=== PATIENT | female | born 1975 | race Caucasian/White ===

== ENCOUNTER 2019-11-23 08:09 | Outpatient (CLI) | payer OTHER, SELFPAY ==
[2019-11-23 09:08] LABS: Alanine Aminotransferase 25 U/L (4-35); Albumin Level 4.3 g/dL (3.5-5.1); Alkaline Phosphatase 135 U/L (38-126); Aspartate Amino Transferase 20 U/L (14-36); Bilirubin,Total 0.5 mg/dL (0.2-1.3); Cholesterol 189 mg/dL (0-200); HDL Direct 54 mg/dL; Triglycerides 164 mg/dL (<150)
[2019-11-23 09:19] LABS: LDL Cholesterol Direct 107 mg/dL
== END 2019-11-23 08:10 | disposition home or self-care (01) ==
PROVIDERS: PCP Family Medicine; Visit Provider Physician Assistant
DX: E78.5 Hyperlipidemia, unspecified (principal); R74.8 Abnormal levels of other serum enzymes; E03.9 Hypothyroidism, unspecified
CPT/HCPCS: 36415; 80061; 80076; 84443

== ENCOUNTER 2020-06-06 07:40 | Outpatient (CLI) | payer OTHER, SELFPAY ==
[2020-06-06 07:59] LABS: Alanine Aminotransferase 26 U/L (4-35); Albumin Level 4.5 g/dL (3.5-5.1); Alkaline Phosphatase 115 U/L (38-126); Anion Gap 5 mmol/L (8-16); Aspartate Amino Transferase 30 U/L (14-36); Bilirubin,Total 0.5 mg/dL (0.2-1.3); Blood Urea Nitrogen 10 mg/dL (7-17); Calcium 9.2 mg/dL (8.4-10.2); Carbon Dioxide 30 mmol/L (22-30); Chloride 107 mmol/L (98-107); Cholesterol 218 mg/dL (0-200); Estimated Glomerular Filt Rate > 60; Glucose 95 mg/dL (65-105); HDL Direct 50 mg/dL; Potassium 3.9 mmol/L (3.4-5.0); Sodium 142 mmol/L (137-145); Triglycerides 113 mg/dL (<150)
[2020-06-06 08:10] LABS: LDL Cholesterol Direct 126 mg/dL
[2020-06-06 08:56] LABS: Thyroid Stimulating Hormone Reflex 0.761 uIU/mL (0.465-4.68)
== END 2020-06-06 07:41 | disposition home or self-care (01) ==
LOC: ANHLAB 07:41
PROVIDERS: PCP Family Medicine; Visit Provider Family Medicine
DX: E78.2 Mixed hyperlipidemia (principal); Z00.00 Encounter for general adult medical examination without abnormal findings
CPT/HCPCS: 36415; 80053; 80061; 84443

== ENCOUNTER → 2020-12-12 07:36 | Outpatient (CLI) | payer OTHER, SELFPAY ==
--- NOTE | 2020-12-20 11:36 | WPDHOMESLEEP ---
Sleep Study - Home Unattended Date of Study: 12/12/20 <Carolyn Morgan DO - Last Filed: 12/20/20 12:05> Ordering Provider: Sourav Duran MD <Carolyn Morgan DO - Last Filed: 12/20/20 12:05> Interpreting Provider: Carolyn Morgan DO <Carolyn Morgan DO - Last Filed: 12/20/20 12:05> Home Sleep Study Type: Watch PAT <Carolyn Morgan DO - Last Filed: 12/20/20 12:05> Height: 1.68 m <Carolyn Morgan DO - Last Filed: 12/20/20 12:05> Weight: 102.058 kg <Carolyn Morgan DO - Last Filed: 12/20/20 12:05> Body Mass Index: 36.3 <Carolyn Morgan DO - Last Filed: 12/20/20 12:05> Neck Circumference (inches): 16 <Carolyn Morgan DO - Last Filed: 12/20/20 12:05> [place]: 12 <Carolyn Morgan DO - Last Filed: 12/20/20 12:05> Reason for Sleep Study Non-restorative sleep and excessive daytime sleepiness. <Carolyn Morgan DO - Last Filed: 12/20/20 12:05> Sleep History Patient is a 45-year-old female with asthma, depression, migraines, hypothyroidism and obesity that had a home sleep study ordered by her primary care physician for unrefreshing sleep and daytime somnolence. The patient works as a nurse. The patient denies awakening from sleep short of breath. She denies awakening at night with heartburn, belching or cough. She frequently snores but it is rarely loud enough that others complain. She frequently has trouble sleeping when she has a cold. She denies waking up gasping for air throughout the night. She denies having breathing problems at night observed by others. She often sweats excessively at night. She denies heart palpitations throughout the night. She frequently falls asleep during the day but never while driving. She rarely has trouble at work due to sleepiness. She denies sleep paralysis and cataplexy. She frequently experiences vivid dreamlike scenes upon awakening or falling asleep. She rarely has nightmares. She frequently feels sad, depressed and anxious. She often has muscular tension. She occasionally notices parts of her body jerk. She denies experiencing crawling and aching feelings in her legs as well as leg pain throughout the night. She denies grinding her teeth during sleep but frequently awakens with morning jaw pain. She is frequently bothered by pain during the day and awakened by pain during the night. She constantly wakes up feeling stiff in the morning with sore and achy muscles. The patient goes to bed between 10 and 11:00 p.m. on the weekdays and at midnight on the weekends. She states it does not take long for her to fall asleep. She wakes up a few times per night. When she wakes up, she will turn over and try to get comfortable. She will occasionally look at the clock. She is able to fall back asleep relatively quickly. She will wake up at 5:15 a.m. on the weekdays and 9:00 a.m. on the weekends. She typically gets 5-7 hours of sleep per night. She will stay in bed for 15-20 minutes after awakening. She currently lives with her 17-year-old child. The patient's work schedule does not change shifts. She will drink a caffeinated beverage within 2 hours of going to bed. She does not engage in physical exercise before bedtime. She will watch television before falling asleep. She will take naps in the afternoon or the evening but they are not refreshing. The patient drinks 2-3 caffeinated beverages per day. She denies tobacco, alcohol and recreational drug use. <Carolyn Morgan DO - Last Filed: 12/20/20 12:05> [facility] Family History Family History: Family History Mother Depression Family history of elevated blood lipids Family history of malignant neoplasm of breast in first degree relative Family history of malignant neoplasm of ovary Sibling Depression Family history of elevated blood lipids Father Hypertens
[2020-12-20 11:57] VITALS: BMI 36.3
== END ==
PROVIDERS: PCP Family Medicine; Visit Provider Family Medicine
DX: G47.33 Obstructive sleep apnea (adult) (pediatric) (principal)
CPT/HCPCS: 95800

== ENCOUNTER 2021-12-12 10:35 | Outpatient (CLI) | payer OTHER, SELFPAY ==
--- NOTE | 2021-12-12 11:15 | ECG_ITS ---
Measurements Intervals [place] Rate: 66 P: 3 IN: 180 QRS: -13 QRSD: 98 T: -10 QT: 387 QTc: 406 Interpretive Statements SINUS RHYTHM LOW QRS VOLTAGE IN PRECORDIAL LEADS [QRS DEFLECTION < 1.0 mV IN CHEST LEADS] NONSPECIFIC T-WAVE ABNORMALITY ABNORMAL ECG NO PREVIOUS ECG AVAILABLE FOR COMPARISON Electronically Signed On 12-12-2021 14:58:23 CDT by David Reyes M.D.
[2021-12-12 11:24] LABS: Hematocrit 44.1 % (37.0-47.0)
== END 2021-12-12 10:36 | disposition home or self-care (01) ==
PROVIDERS: PCP Family Medicine; Referring Provider Anesthesiology; Visit Provider Obstetrics & Gynecology
DX: G54.0 Brachial plexus disorders (principal); N95.1 Menopausal and female climacteric states; R94.31 Abnormal electrocardiogram [ECG] [EKG]
CPT/HCPCS: 36415; 85014; 85018; 93005

== ENCOUNTER 2021-12-12 10:48 | Outpatient (CLI) | payer OTHER, SELFPAY ==
[2021-12-12 11:46] LABS: Alanine Aminotransferase 46 U/L (6-35); Albumin Level 4.4 g/dL (3.5-5.1); Alkaline Phosphatase 124 U/L (38-126); Anion Gap 8 mmol/L (8-16); Aspartate Amino Transferase 34 U/L (14-36); Bilirubin,Total 0.7 mg/dL (0.2-1.3); Blood Urea Nitrogen 10 mg/dL (7-17); Calcium 9.1 mg/dL (8.4-10.2); Carbon Dioxide 29 mmol/L (22-30); Chloride 103 mmol/L (98-107); Cholesterol 239 mg/dL (0-200); Estimated Glomerular Filt Rate > 60; Glucose 89 mg/dL (65-110); HDL Direct 45 mg/dL; Potassium 3.9 mmol/L (3.4-5.0); Sodium 140 mmol/L (137-145); Triglycerides 125 mg/dL (<150)
[2021-12-12 11:57] LABS: LDL Cholesterol Direct 140 mg/dL
[2021-12-12 12:11] LABS: Thyroid Stimulating Hormone Reflex 0.471 uIU/mL (0.465-4.68)
== END 2021-12-12 10:49 | disposition home or self-care (01) ==
PROVIDERS: PCP Family Medicine; Visit Provider Family Medicine
DX: E78.5 Hyperlipidemia, unspecified (principal); E03.9 Hypothyroidism, unspecified
CPT/HCPCS: 36415; 80053; 80061; 84443; 85014; 85018; 93005

== ENCOUNTER 2021-12-13 01:14 | Day surgery (SDC) | payer OTHER, SELFPAY ==
[2021-12-11 13:29] VITALS: BMI 36.0
--- NOTE | 2021-12-11 13:37 | SUR.PREOP ---
Report to the Outpatient Waiting Room, entrance under the green pavilion located off [facility], at time _1015 on date _12/13/21 . Planned Procedure Time: 1215 . Time changes happen often and if your time is changed the preop area will call you the afternoon before. - You and your visitor will be asked to self-screen and do not enter if you have any COVID symptoms. - We encourage only one visitor and NO visitors under age 16 are allowed at this time. Your visitor will receive communication by the phone number that is given day of service. - The patient visitor is requested to social distance or may leave the building when not with patient due to restrictions. - A mask is required within the hospital. Patients may have clear liquids (water, carbonated beverages, clear teas, apple juice) until 3 hours prior to surgery with a maximum of 20 ounces. - No food from midnight until time of surgery - Infants may have breast milk until 4 hours before surgery, formula 6 hours prior to surgery. - Children will be allowed to drink immediately following surgery. If applicable, please bring a bottle or sippy cup to assist with drinking. Juice, water, soda, and popsicles are readily available. For infants on formula, please bring formula the day of surgery. Pacifiers are allowed. Take the following medications with a SIP of water the morning of surgery: __LEVOTHYROXINE,VERAPAMIL,BUPROPION,VORTIOXETINE,BRING ALBUTEROL INHALER Medications to discontinue per physician ___N/A Date to take last dose__N/A Please no make-up, nail romanian, hairspray, perfume, deodorant, or body powder the day of surgery. No jewelry (including any body piercings) or valuables the day of surgery, leave them at home. Please take a shower or bath the night before, or the morning of, surgery with an antibacterial soap. Wear comfortable, loose fitting clothing. Children are encouraged to wear pajamas. - Jewelry must be removed prior to entering the operating room. Rings and piercings that are not removed may be cut off. - The hospital will not accept responsibility for valuables. - Please leave all valuables, including medications, at home the day of surgery. If you are going home after surgery, a licensed yard driver must drive you home. - NO public transportation without another adult. - We recommend that an adult stay with you for 24 hours following discharge. - We also recommend that you do not drive, make important decision, drink alcoholic beverages, or take any drugs that were not prescribed by your health care provider for at least 24 hours after your discharge time. For Pediatric surgeries, we recommend two adults accompany the child home. Follow any additional instructions given to you from your surgeon. If you or anyone in your household have experienced Covid symptoms in the past week, please notify your surgeon or the nurse liaison at the phone number below for possible testing. Telephone instructions given to JUAN PABLO EDUARDO and asked if any additional questions and then verbalized understanding. Patient advised to call surgeon office or pre surgery nurse liaison [phone] if any additional questions.
--- NOTE | 2021-12-11 16:38 | PM.IMHP ---
H&P: HPI History of Present Illness Date/Time: 12/11/21 16:38 Chief Complaint: desires sterilization and excessive heavy bleeding Narrative: 46-year-old female with an IUD was had heavy bleeding with an IUD who desires it to be removed and desires permanent sterilization. She will undergo hysteroscopy D&C and Frieda ablation as well. She understands this to be permanent and irreversible procedures. Risks and benefits reviewed in great detail PMFSH Family History Family History Mother Depression Family history of elevated blood lipids Family history of malignant neoplasm of breast in first degree relative Family history of malignant neoplasm of ovary Sibling Depression Family history of elevated blood lipids Father Hypertension Family history of elevated blood lipids Family history of cardiovascular disease Cerebrovascular accident Malignant neoplasm of prostate Grandparent Hypertension Family history of elevated blood lipids Other Family history of headache disorder Family history of hypothyroidism Family history of migraine headaches Social History Social History Smoking status: Never smoker Alcohol intake: never Alcohol use details: occasionally Living arrangements: with family Spiritual care concerns: No Meds Home Medications and Allergies Home Medications Medication Instructions Recorded Confirmed Type hydrocodone 5 mg-acetaminophen 325 1 tablet PO Q6H PRN pain #28 tabs 11/21/19 12/11/21 Rx mg tablet ([place]) albuterol sulfate 90 mcg/actuation 2 puff inhalation Q4H PRN 09/10/20 12/11/21 Rx aerosol inhaler (ProAir HFA) shortness of breath or wheezing #8.5 grams albuterol sulfate 2.5 mg/3 mL 2.5 mg (3 mL) inhalation Q4H PRN 04/29/21 12/11/21 Rx (0.083 %) solution for nebulization shortness of breath or wheezing #75 mL fluticasone furoate 200 1 inh inhalation DAILY 07/05/21 12/11/21 History mcg-vilanterol 25 mcg/dose inhalation powder (Breo Ellipta) bupropion HCl 300 mg 24 hr tablet, See Rx Instructions .Route 09/16/21 12/11/21 Rx extended release .COMPLEX #90 tabs cyclobenzaprine 10 mg tablet 10 mg PO TID #90 tabs 09/16/21 12/11/21 Rx levothyroxine 137 mcg tablet 137 mcg PO DAILY #90 tabs 09/16/21 12/11/21 Rx (Synthroid) montelukast 10 mg tablet 10 mg PO DAILY #90 tabs 09/16/21 12/11/21 Rx (Singulair) simvastatin 10 mg tablet 10 mg PO DAILY #90 tabs 09/16/21 12/11/21 Rx verapamil 180 mg 24 hr See Rx Instructions .Route 09/16/21 12/11/21 Rx capsule,extended release .COMPLEX #90 caps vortioxetine 10 mg tablet 10 mg PO DAILY #90 tabs 09/16/21 12/11/21 Rx (Trintellix) galcanezumab-gnlm 120 mg/mL See Rx Instructions .Route 09/18/21 12/11/21 Rx subcutaneous pen injector .COMPLEX #3 mL (Emgality Pen) rizatriptan 10 mg tablet See Rx Instructions .Route 10/31/21 12/11/21 Rx .COMPLEX #27 tabs xgmtvucbwg-ezhblmxculumt-swjfucyp 1 cap PO Q4-6H PRN pain #30 caps 11/28/21 12/11/21 Rx 50 mg-300 mg-40 mg capsule (Fioricet) levonorgestrel 20 mcg/24 hours (8 1 device intrauterine ONCE 11/28/21 12/11/21 History yrs) 52 mg intrauterine device (Mirena) cetirizine 10 mg capsule (Zyrtec) 10 mg PO DAILY 12/11/21 12/11/21 History Allergies Allergy/AdvReac Type Severity Reaction Status Date / Time adhesive Allergy Intermediate Blister Verified 12/11/21 13:00 benzoin Allergy Intermediate Rash and Verified 12/11/21 13:00 blisters Exam Const: General: cooperative, healthy appearing and comfortable Nutritional Appearance: average body habitus Orientation/consciousness: oriented to person, oriented to place and oriented to time HENMT: Head: normal to inspection Resp: Effort & Inspection: normal respiratory effort Cardio: Rate: regular rate Rhythm: regular rhythm Heart sounds: S1 normal heart sound present
--- NOTE | 2021-12-12 13:43 | WPDANESEPPF ---
Anes - Initial Pre Proc Eval Procedure: Operation Date: 12/13/21 12:15 Proposed Procedures p Laparoscopic Bilateral Tubal Ligation with Fallopian Rings - Doni Suazo MD s Hysteroscopy Dilation and Curettage with Novasure Endometrial Ablation - Doni Suazo MD Date/Time: 12/12/21 13:43 Surgeon: Doni Suazo MD Pre Op Diagnosis: desirs sterilization, excessive bleeding Patient Data Age: 46 Gender: F Height: 1.68 m Weight: 101.36 kg Allergies Allergy/AdvReac Type Severity Reaction Status Date / Time adhesive Allergy Intermediate Blister Verified 12/13/21 10:12 benzoin Allergy Intermediate Rash and Verified 12/13/21 10:12 blisters Home Medications Medication Instructions Recorded Confirmed Type hydrocodone 5 mg-acetaminophen 325 1 tablet PO Q6H PRN pain #28 tabs 11/21/19 12/11/21 Rx mg tablet ([place]) albuterol sulfate 90 mcg/actuation 2 puff inhalation Q4H PRN 09/10/20 12/11/21 Rx aerosol inhaler (ProAir HFA) shortness of breath or wheezing #8.5 grams albuterol sulfate 2.5 mg/3 mL 2.5 mg (3 mL) inhalation Q4H PRN 04/29/21 12/11/21 Rx (0.083 %) solution for nebulization shortness of breath or wheezing #75 mL fluticasone furoate 200 1 inh inhalation DAILY 07/05/21 12/11/21 History mcg-vilanterol 25 mcg/dose inhalation powder (Breo Ellipta) bupropion HCl 300 mg 24 hr tablet, See Rx Instructions .Route 09/16/21 12/11/21 Rx extended release .COMPLEX #90 tabs cyclobenzaprine 10 mg tablet 10 mg PO TID #90 tabs 09/16/21 12/11/21 Rx levothyroxine 137 mcg tablet 137 mcg PO DAILY #90 tabs 09/16/21 12/11/21 Rx (Synthroid) montelukast 10 mg tablet 10 mg PO DAILY #90 tabs 09/16/21 12/11/21 Rx (Singulair) simvastatin 10 mg tablet 10 mg PO DAILY #90 tabs 09/16/21 12/11/21 Rx verapamil 180 mg 24 hr See Rx Instructions .Route 09/16/21 12/11/21 Rx capsule,extended release .COMPLEX #90 caps vortioxetine 10 mg tablet 10 mg PO DAILY #90 tabs 09/16/21 12/11/21 Rx (Trintellix) galcanezumab-gnlm 120 mg/mL See Rx Instructions .Route 09/18/21 12/11/21 Rx subcutaneous pen injector .COMPLEX #3 mL (Emgality Pen) rizatriptan 10 mg tablet See Rx Instructions .Route 10/31/21 12/11/21 Rx .COMPLEX #27 tabs awtovssnqz-bqooeywietxqj-ufpariai 1 cap PO Q4-6H PRN pain #30 caps 11/28/21 12/11/21 Rx 50 mg-300 mg-40 mg capsule (Fioricet) levonorgestrel 20 mcg/24 hours (8 1 device intrauterine ONCE 11/28/21 12/11/21 History yrs) 52 mg intrauterine device (Mirena) cetirizine 10 mg capsule (Zyrtec) 10 mg PO DAILY 12/11/21 12/11/21 History hydrocodone 5 mg-acetaminophen 325 1 tablet PO Q4H PRN pain #20 tabs 12/13/21 Rx mg tablet Patient hx anesthesia problems: none Family hx anesthesia problems: none Results Review: All pre-operative results and documents have been reviewed as part of the pre-operative evaluation. [facility] Past Medical History Medical History (Updated 12/12/21 @ 13:44 by Vinayak Mike DO) Asthma Hypothyroidism (acquired) Mixed hyperlipidemia BEN (obstructive sleep apnea) Auto PAP Family History Family History Mother Depression Family history of elevated blood lipids Family history of malignant neoplasm of breast in first degree relative Family history of malignant neoplasm of ovary Sibling Depression Family history of elevated blood lipids Father Hypertension Family history of elevated blood lipids Family history of cardiovascular disease Cerebrovascular accident Malignant neoplasm of prostate Grandparent Hypertension Family history of elevated blood lipids Other Family history of headache disorder Family history of hypothyroidism Family history of migraine headaches Social History Social History Smoking status: Never smoker Alcohol intake: never Alcohol use details: occa
[2021-12-13] VITALS (14 sets, daily range): BP systolic 108–123; BP diastolic 46–93; PULSE 70–97; RESP 10–21; TEMP 36.4–36.6; O2SAT 92–99
--- NOTE | 2021-12-13 06:53 | WPDHPUPDATE1 ---
History and Physical Update Update Date/Time: 12/13/21 06:53 History and Physical has been reviewed, including an updated exam of the patient. There are NO changes in the patient's condition. Risks, benefits, and alternatives have been discussed and questions answered. Patient agrees to proceed with procedure.
[2021-12-13] MEDS: ACETAMINOPHEN 500 MG TABLET 1000 MG PO (10:17)
[2021-12-13] MEDS: KETOROLAC 15 MG/ML VIAL (*BKC) IV PUSH ×2 (10:47→13:05)
[2021-12-13] MEDS: LACTATED RINGERS 1,000 ML 30 ML IV CONT ×2 (10:47→14:07)
--- NOTE | 2021-12-13 12:23 | P.OP_ITS ---
Procedure Note - Detailed Date of Procedure 12/13/21 Pre-op Diagnosis desirs sterilization, excessive bleeding Post-op Diagnosis Same Procedure Performed Laparoscopic bilateral tubal ligation with rings/removal of IUD/hysteroscopy/ dilatation curettage/Frieda ablation Surgeon Doni Suazo MD Anesthesia General Indications this 46-year-old female who desires permanent sterilization with excessive heavy bleeding this been refractory to medical treatment. Findings On laparoscopy the uterus was bulky but normal normal appearing ovaries and tubes are present there was a small lesion anteriorly from the omentum to the anterior abdominal wall. On hysteroscopy the uterus sounded to 9cm. Thick irregular endometrial tissue was seen after removal of the IUD. The no evidence of cancer or other pathology. Description of Procedure Patient was prepped draped in the normal sterile fashion placed in the dorsal lithotomy position. Under excellent general trach anesthesia weighted speculum placed in posterior fornix vagina. Anterior lip of the cervix grasped with single-tooth tenaculum and the Solorzano's cannula inserted attached to the single- tooth to be used later for uterine ablation. Bladder emptied of clear urine in the weighted speculum was removed. Gloves were changed Supraumbilical incision made the Veress needle passed in the abdomen. Abdomen filled with CO2 gas [id number]. The 5mm trocar advanced under direct visualization with the Optiview and no injury seen. Patient placed in Trendelenburg and a suprapubic incision made. The 8mm trocar advanced under direct visualization assuring no injury. The above findings were noted. The right fallopian tube was grasped at its midportion and a good knuckle of tube formed. The left fallopian tube was then grasped and a good knuckle of tube formed with excellent blanching there. The appendix appeared within normal limits as did the remainder the pelvis and the instruments were withdrawn after gas had been removed from the abdomen. The incisions closed with 4 Monocryl and glue. Attention turned to the hysteroscopic portion of the procedure. The uterus sounded to 9 cm after the IUD had been removed in 1 piece. Serial dilatation with fragmented dilators performed followed by passage of the 5mm visualizing hysteroscope. Normal saline was used as visualizing medium. Thick irregular endometrial tissue was seen but noted a abnormalities were seen. The uterus was then scraped over the entire 360? until good grating sound was heard. The instruments were withdrawn and the Frieda instrument placed in the uterus at t he appropriate settings and burned for 120seconds. This was then withdrawn and hysteroscope reinserted a good burn noted and photo documentation undertaken. The patient was awakened and went to recovery in satisfactory condition. All sponge, needle, instrument counts were correct. There were no immediate complications Estimated Blood Loss 5 Drains No Packing No Pathology Yes Complications No immediate complications Condition Stable Disposition PACU
[2021-12-13] MEDS: fentaNYL CITRATE INJ (*CRX) 100 MCG/2 ML VIAL 25 MCG IV PUSH ×8 (12:37→15:21)
[2021-12-13] MEDS: ONDANSETRON INJ 4 MG/2 ML VIAL IV PUSH (12:55)
[2021-12-13] MEDS: HYDROmorphone HCL INJ (*CRX) 1 MG/ML SYR 0.5 MG IV PUSH ×8 (13:19→14:53)
[2021-12-13] MEDS: oxyCODONE HCL (*CRX) 5 MG TAB IR PO (15:41)
--- NOTE | 2021-12-13 16:24 | SUR.PHASEII ---
GAME SHOW HOST CALLED RE: PATIENT'S NAUSEA; AWAITING REPLY. COOL COMPRESSES TO PATIENT'S POSTERIOR NECK AND FOREHEAD.
[2021-12-13] MEDS: ONDANSETRON HCL ODT 4 MG TABLET PO (16:42)
[2021-12-13] MEDS: SCOPOLAMINE 1.5 MG PATCH TRANSDERM (16:44)
== END 2021-12-13 16:46 | disposition home or self-care (01) ==
PROVIDERS: PCP Family Medicine; Visit Provider Obstetrics & Gynecology
PROC: (CPT 58671; principal; 2021-12-13 12:15)
PROC: 0U5B8ZZ Destruction of Endometrium, Via Natural or Artificial Opening Endoscopic (ICD-10-PCS; CPT 58563; 2021-12-13 12:15)
DX: Z30.2 Encounter for sterilization (principal); N93.9 Abnormal uterine and vaginal bleeding, unspecified; Z30.432 Encounter for removal of intrauterine contraceptive device; J45.909 Unspecified asthma, uncomplicated; E03.9 Hypothyroidism, unspecified; E78.2 Mixed hyperlipidemia; G47.33 Obstructive sleep apnea (adult) (pediatric); Z79.51 Long term (current) use of inhaled steroids; E66.9 Obesity, unspecified; Z68.35 Body mass index [BMI] 35.0-35.9, adult
CPT/HCPCS: 58671; 58563; 58301; 88305; A4264; A9270; J0330; J1100; J1170; J1885; J2250; J2405; J2704; J3010; J7030; J7120

== ENCOUNTER 2022-01-21 08:19 | Outpatient (CLI) | payer OTHER, SELFPAY ==
--- NOTE | ~2022-01-21 | MM_ITS ---
EXAMINATION: MM screening karly BI w adeline HISTORY: Screening mammogram TECHNIQUE: Craniocaudal and mediolateral oblique 3-D tomosynthesis images were obtained and synthetic 2-D images were generated. CAD analysis was submitted and interpreted. COMPARISON: 05/12/2017 BREAST PARENCHYMAL COMPOSITION: There are scattered areas of fibroglandular density. FINDINGS: No suspicious mass, calcification, or architectural distortion are identified in either luann ast to suggest malignancy. There has been no suspicious interval change. IMPRESSION: 1. No mammographic evidence of malignancy. 2. Recommend routine screening mammography in one year. BI-RADS Category 1: Negative Reviewed, dictated and finalized at location A. [facility]MAN HELPER
== END 2022-01-21 08:20 | disposition home or self-care (01) ==
LOC: ANHIMG 08:20
PROVIDERS: PCP Family Medicine; Visit Provider Obstetrics & Gynecology
DX: Z12.31 Encounter for screening mammogram for malignant neoplasm of breast (principal)
CPT/HCPCS: 77063; 77067

== ENCOUNTER → 2022-07-24 11:10 | Outpatient (CLI) | payer OTHER, SELFPAY ==
--- NOTE | ~2022-07-24 | XR_ITS ---
AP and lateral views of the left hip Clinical history: Pain Findings: No acute fracture or dislocation is seen. Osseous alignment is anatomic. The left hip joint is unremarkable. Soft tissues are unremarkable. Impression: No significant abnormality is seen. Reviewed, dictated and finalized at location . Impression: No significant abnormality is seen.
== END ==
PROVIDERS: PCP Family Medicine; Visit Provider Anesthesiology Pain Medicine
DX: M25.552 Pain in left hip (principal)
CPT/HCPCS: 73502

== ENCOUNTER 2024-03-01 10:22 | Outpatient (CLI) | payer OTHER, SELFPAY ==
--- NOTE | 2024-03-01 11:00 | NEURO_ITS ---
Impression: # Complains of pain in hands. Non-diabetic. ? # Normal Nerve Conduction Study; No Carpal Tunnel Syndrome or ulnar neuropathy. ? # Normal needle/EMG exam. Nerve Conduction Studies Anti Sensory Summary Table ?Stim Site NR Peak (ms) P-T Amp (?V) Site1 Site2 Delta-P (ms) Dist (cm) Mc (m/s) Left Median Anti Sensory (2-3nd Digit) Wrist ? 2.6 77.9 Wrist 2-3nd Digit 2.6 14.0 54 Wrist ? 2.5 69.3 Wrist 2-3nd Digit 2.6 14.0 54 Right Median Anti Sensory (2-3nd Digit) Wrist ? 2.4 47.8 Wrist 2-3nd Digit 2.4 14.0 58 Wrist ? 2.5 62.2 Wrist 2-3nd Digit 2.4 14.0 58 Left Radial Anti Sensory (Base 1st Digit) Wrist ? 1.7 37.2 Wrist Base 1st Digit 1.7 0.0 Right Radial Anti Sensory (Base 1st Digit) Wrist ? 1.8 27.0 Wrist Base 1st Digit 1.8 0.0 Left Ulnar Anti Sensory (5th Digit) Wrist ? 2.2 38.6 Wrist 5th Digit 2.2 14.0 64 Right Ulnar Anti Sensory (5th Digit) Wrist ? 2.0 77.5 Wrist 5th Digit 2.0 14.0 70 Motor Summary Table ?Stim Site NR Onset (ms) O-P Amp (mV) Site1 Site2 Delta-0 (ms) Dist (cm) Mc (m/s) Left Median Motor (Abd Poll Brev) Wrist ? 2.5 4.8 Elbow Wrist 4.7 29.0 62 Elbow ? 7.2 4.7 Right Median Motor (Abd Poll Brev) Wrist ? 2.8 4.7 Elbow Wrist 4.3 26.0 60 Elbow ? 7.1 2.4 Left Ulnar Motor (Abd Dig Minimi) Wrist ? 2.2 7.4 A Elbow Wrist 5.1 30.0 59 A Elbow ? 7.3 4.6 Right Ulnar Motor (Abd Dig Minimi) Wrist ? 2.3 5.6 A Elbow Wrist 4.8 29.0 60 A Elbow ? 7.1 4.3 F Wave Studies ?NR F-Lat (ms) L-R F-Lat (ms) Left Median (Mrkrs) (Abd Poll Brev) ? 25.81 0.48 Right Median (Mrkrs) (Abd Poll Brev) ? 26.29 0.48 Left Ulnar (Mrkrs) (Abd Dig Min) ? 24.61 0.35 Right Ulnar (Mrkrs) (Abd Dig Min) ? 24.95 0.35 EMG ?Side Muscle Nerve Root Ins Act Fibs Amp Dur Recrt Comment Right 1stDorInt Ulnar C8-T1 Nml Nml Nml Nml Nml Right Ext Indicis Radial (Post Int) C7-8 Nml Nml Nml Nml Nml Right Ext Digitorum Radial (Post Int) C7-8 Nml Nml Nml Nml Nml Right BrachioRad Radial C5-6 Nml Nml Nml Nml Nml Right PronatorTeres Median C6-7 Nml Nml Nml Nml Nml Right Abd Poll Brev Median C8-T1 Nml Nml Nml Nml Nml Right ABD Dig Min Ulnar C8-T1 Nml Nml Nml Nml Nml Left 1stDorInt Ulnar C8-T1 Nml Nml Nml Nml Nml Left Ext Indicis Radial (Post Int) C7-8 Nml Nml Nml Nml Nml Left Ext Digitorum Radial (Post Int) C7-8 Nml Nml Nml Nml Nml Left BrachioRad Radial C5-6 Nml Nml Nml Nml Nml Left PronatorTeres Median C6-7 Nml Nml Nml Nml Nml Left Abd Poll Brev Median C8-T1 Nml Nml Nml Nml Nml Left ABD Dig Min Ulnar C8-T1 Nml Nml Nml Nml Nml MTDD
== END 2024-03-01 10:23 | disposition home or self-care (01) ==
LOC: ANHNEURO 10:25
PROVIDERS: PCP Family Medicine; Visit Provider Family Medicine
DX: M79.642 Pain in left hand (principal); M79.641 Pain in right hand
CPT/HCPCS: 95886; 95911

== ENCOUNTER 2024-05-23 09:50 | Outpatient (CLI) | payer OTHER, SELFPAY ==
--- NOTE | ~2024-05-23 | XR_ITS ---
Right Hand Technique: PA, oblique, and lateral views were obtained. Clinical History: Ulnar nerve lesion Findings: No acute fracture or dislocation is seen. Osseous alignment is anatomic. Joint spaces are p reserved. Soft tissues are unremarkable. Impression: Unremarkable right hand. Reviewed, dictated and finalized at location . Impression: Unremarkable right hand.
--- OUTSIDE RECORDS SUMMARY | 2024-05-23 10:53 | XMS_ITS | Clinical Summary ---
Author Organization [facility] [address] Address [facility] [place] [address] Care Team Providers Care Nuclear Weapons Custodian Name Role Phone Sourav Duran MD Primary Care Provider [phone] Angely Duran MD Unavailable [phone] Allergies Active Allergy Reactions Criticality Noted Date Comments Sumatriptan Medications eletriptan (RELPAX) 40 mg tabletIndicatio ns:Migraine Take 1 tablet (40 mg total) by mouth once as needed for migraine for up to 108 doses may repeat in 2 hours if necessary 9 tablet 11 3 Active levothyroxine sodium (TIROSINT) 137 mcg capsule Take 125 mcg by mouth Active vortioxetine (Trintellix) 10 mg tabletIndicatio ns:major depressive disorder daily Active buPROPion XL (WELLBUTRIN XL) 300 mg 24 hr tablet Take 1 tablet (300 mg total) by mouth daily Active Breo Ellipta 200-25 mcg/dose diskus inhaler Inhale 1 puff daily 2 Active simvastatin (ZOCOR) 10 mg tablet Take 1 tablet (10 mg total) by mouth Active Emgality Pen 120 mg/mL pen injector ADMINISTER 1 ML UNDER THE SKIN MONTHLY 2 Active al & mag hydroxide with simethicone-dip henhydramine-li docaine (MAGIC MOUTHWASH) suspension 0-7-5Prnfrtyhdh s:Pharyngitis due to other organism Swish and swallow 10 mL every 4 (four) hours as needed (pain) 150 mL Active Active Problems Problem Noted Date Diagnosed Date Intractable chronic migraine without aura and without status migrainosus 08/20/2022 Disorder of lung 11/30/2012 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 Social History Tobacco Use Types Packs/Day Years Used Date Smoking Tobacco: Never Comments Unknown Sex and Gender Information Value Date Recorded Sex Assigned at Not on file 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 Gender Identity Female 11/20/2022 11:54 AM CDT Sexual Orientation Not on file Obstetrics History Last Filed Vital Signs Vital Sign Reading Time Taken Comments Blood Pressure 120/70 08/20/2022 11:07 AM CDT Pulse 106 08/02/2021 11:36 AM CDT Temperature 36.9 C (98.4 F) 08/02/2021 11:36 AM CDT Respiratory Rate 16 08/02/2021 11:36 AM CDT Oxygen Saturation 96% 08/02/2021 11:36 AM CDT Inhaled Oxygen Concentration - - Weight 99.3 kg (219 lb) 08/20/2022 11:07 AM CDT Height 170.2 cm (5' 7 ) 08/20/2022 11:07 AM CDT Body Mass Index 34.3 08/20/2022 11:07 AM CDT Plan of Treatment Health Maintenance Due Date Last Done Comments Breast Cancer Screening-Mammogram 1977 Cervical Cancer Screening 1977 Colon Cancer Screening-Colonoscopy 1975 Depression Screening 1977 Hepatitis C Screening 1977 DTaP/Tdap/Td Vaccine (1 - Tdap) 1988 Hepatitis B Screening 1995 Regular Well Visit/Exam 18-64 1995 Covid-19 Vaccine (2023-2 5 season) 2023 11/30/2020, 03/02/2020, 02/10/2020 Influenza Vaccine (#1) 2023 Pneumococcal vaccine <65 Aged Out No longer eligible based on patient's age to complete this topic Medical Devices Implanted Type Area Commercial Real Estate Underwriter Device Identifier Shelf Expiration Date Model / Serial / Lot Spinal Cord Stimulator Implanted:Unkn own, Notinfile (Quantity not on file) Spinal Cord Stimulator Back Medtronic Neuro [id number] / / Spinal Cord Stimulator Lead Implanted:Summer Olivera (Quantity not on file) Spinal Cord Stimulator Back Medtronic Neuro [id number] / / Insurance [facility] OPEN ACCESS [facility] OPEN ACCESS Care Teams Nuclear Weapons Custodian Relationship Specialty Start Date End Date Sourav Duran MD PCP - General 08/02/21 Angely Duran MD Family Medicine 08/02/21
--- OUTSIDE RECORDS SUMMARY | 2024-05-23 10:53 | XMS_ITS | Referral Summary ---
Author Organization 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 Gender Identity Female 11/20/2022 11:54 AM CDT Sexual Orientation Not on file Last Filed Vital Signs Vital Sign Reading [...] 08/20/2022 11:07 AM CDT Plan of Treatment Not on file Medical Devices Implanted Type Area Splicing Machine Operator Automatic Device Identifier Shelf Expiration Date Model / Serial / Lot Spinal Cord Stimulator Implanted:Unkn own, Notinfile (Quantity not on file) Spinal Cord Stimulator Back Medtronic Neuro [id number] / / Spinal Cord Stimulator Lead Implanted:Unkn own, Notinfile (Quantity not on file) Spinal Cord Stimulator Back Medtronic Neuro [id number] / / Insurance [facility] OPEN ACCESS [facility] OPEN ACCESS Care Teams Satellite Tv Installer Relationship Specialty Start Date End Date Sourav Duran MD PCP - General 08/02/21 Angely Duran MD Family Medicine 08/02/21
== END 2024-05-23 09:51 | disposition home or self-care (01) ==
LOC: ANHIMG 09:53
PROVIDERS: PCP Family Medicine; Visit Provider Plastic Surgery
DX: G56.21 Lesion of ulnar nerve, right upper limb (principal)
CPT/HCPCS: 73130

== ENCOUNTER 2024-06-01 09:40 | Outpatient (CLI) | payer OTHER, SELFPAY ==
--- NOTE | ~2024-06-01 | MM_ITS ---
EXAMINATION: MM screening karly BI w adeline HISTORY: Screening TECHNIQUE: Craniocaudal and mediolateral oblique 3-D tomosynthesis images were obtained and synthetic 2-D images were generated. CAD analysis was submitted and interpreted. COMPARISON: Comparison to multiple prior studies sequentially, with oldest reviewed study dated 05/12. BREAST PARENCHYMAL COMPOSITION: Not dense: There are scattered areas of fibroglandular density. FINDINGS: There is no evidence of suspicious mass, calcification, or architectural distortion to sugg est malignancy in either breast. There has been no suspicious interval change. IMPRESSION: 1. No mammographic evidence of malignancy. 2. Recommend routine screening mammography in one year. BI-RADS Category 1: Negative Reviewed, dictated and finalized at location A.
--- OUTSIDE RECORDS SUMMARY | 2024-06-01 10:49 | XMS_ITS ---
Author Organization [facility] Address [address] [place] [address] Care Team Providers Care Hardwood Faller Name Role Phone Sourav Duran M.D. Primary Care Provider Arelis vailable [place] Unavailable [phone] REASON FOR VISIT RE:Migraines Encounters Encounter Location Date Provider Diagnosis [facility] [address] [place] [address] 03/21/2024 [place] Plan Of Treatment No Information Progress Notes * Melly FAJARDO MDOB:1975 (48 yo F)Acc No.[id number]:03/21/2024 Patient: Melly PLUNKETT :1975 A ge:48 Y S ex:Female Address:[address], [place] [facility] [address] * true * Date: Generated for Printi ng/Faxing/eTransmitting on: 0 06/01/2024 10:48 AM CDT
--- OUTSIDE RECORDS SUMMARY | 2024-06-01 10:49 | XMS_ITS ---
Author Organization [facility] Address [address] [place] [address] Care Team Providers Care Condominium Association Manager Name Role Phone Sourav Duran M.D. Primary Care Provider Arelis lazaroilaSunshine Teague Unavailable [phone] Maris Hardin Unavailable [phone] REASON FOR VISIT RE:Migraines Encounters Encounter Location Date Provider Diagnosis [facility] [address] [place] [address] 03/21/2024 Maris Hardin Plan Of Treatment No Information Progress Notes * Melly FAJARDO MDOB:1975 (49 yo F)Acc No.[id number]:03/21/2024 Patient: Melly PLUNKETT :1975 A ge:48 Y S ex:Female Address:[address] [address], [address] * * Date:
--- OUTSIDE RECORDS SUMMARY | 2024-06-01 10:49 | XMS_ITS | Referral Summary ---
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 Gender Identity Female 11/20/2022 11:54 AM CDT [...] on file Medical Devices Implanted Type Area Passenger Car Upholsterer Apprentice Device Identifier Shelf Expiration Date Model / Serial / Lot Spinal Cord Stimulator Implanted:Unkn own, Notinfile (Quantity not on file) Spinal Cord Stimulator Back Medtronic Neuro [id number] / / Spinal Cord Stimulator Lead Implanted:Unkn own, Notinfile (Quantity not on file) Spinal Cord Stimulator Back Medtronic Neuro [id number] / / Insurance [facility] OPEN ACCESS [facility] OPEN ACCESS Care Teams Chemist Intern Relationship Specialty Start Date End Date Sourav Duran MD PCP - General 08/02/21 Angely Duran MD Family Medicine 08/02/21
--- OUTSIDE RECORDS SUMMARY | 2024-06-01 10:49 | XMS_ITS | Clinical Summary ---
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 Gender Identity Female 11/20/2022 11:54 AM CDT [...] this topic Medical Devices Implanted Type Area Ship Carpenter Device Identifier Shelf Expiration Date Model / Serial / Lot Spinal Cord Stimulator Implanted:Unkn own, Notinfile (Quantity not on file) Spinal Cord Stimulator Back Medtronic Neuro [id number] / / Spinal Cord Stimulator Lead Implanted:Summer Olivera (Quantity not on file) Spinal Cord Stimulator Back Medtronic Neuro [id number] / / Insurance [facility] OPEN ACCESS [facility] Care Teams Shearing Machine Operator Relationship Specialty Start Date End Date Sourav Duran MD PCP - General 08/02/21 Angely Duran MD Family Medicine 08/02/21
--- OUTSIDE RECORDS SUMMARY | 2024-06-01 10:49 | XMS_ITS ---
Author Organization [facility] Address [address] [place] [address] Care Team Providers Care Rail Car Mechanic Name Role Phone Sourav Duran M.D. Primary Care Provider Arelis [place] Unavailable [phone] Maris Hardin Unavailable [phone] REASON FOR VISIT Migraines Encounters Encounter Location Date Provider Diagnosis [facility] [address] [place] [address] 03/21/2024 Maris Hardin Plan Of Treatment No Information Progress Notes * Melly FAJARDO MDOB:1975 (48 yo F)Acc No.[id number]:03/21/2024 Patient: Melly PLUNKETT :1975 A ge:48 Y S ex:Female Address:[address], [place], [address] * true * Date: Generated for Printi ng/Fagleng/eTransmitting on: 0 06/01/2024 10:48 AM CDT
== END 2024-06-01 09:41 | disposition home or self-care (01) ==
LOC: ANHIMG 09:43
PROVIDERS: PCP Family Medicine; Visit Provider Obstetrics & Gynecology
DX: Z12.31 Encounter for screening mammogram for malignant neoplasm of breast (principal)
CPT/HCPCS: 77063; 77067

== ENCOUNTER 2024-07-08 00:10 | Day surgery (SDC) | payer OTHER, SELFPAY ==
[2024-06-29 15:52] VITALS: BMI 34.7
--- NOTE | 2024-06-29 15:59 | PC.NURSE ---
Addendum entered by Munir Miller RN 06/29/24 16:13: Patient told to hold liquids also after 4am. Original Note: Report to the Outpatient Waiting Room, entrance under the green pavilion located off [facility], at time _1000_ on date _[id number]_. Planned Procedure Time: _1200_. Time changes happen often and if your time is changed the preop area will call you the afternoon before. - You and your visitor will be asked to self-screen and do not enter if you have any COVID symptoms. Please call surgeon if you need to reschedule. - A mask is optional within the hospital at this time. Patients may have clear liquids (water, carbonated beverages, clear teas, apple juice) until 3 hours prior to surgery with a maximum of 20 ounces. - No food from midnight until time of surgery and no smoking, or chewing tobacco (or any form of nicotine). No chewing gum, candy or mints. Take only the following medications with a SIP of water on the morning of surgery: __Symbicort, Vertioxetine, Levothyroxine, Estradiol-norethindrone, Bupropion, quilipta and if needed Albuterol and or hydrocodone.___ DO NOT STOP ANY OF YOUR OTHER PRESCRIPTION MEDICATIONS PRIOR TO SURGERY EXCEPT THE FOLLOWING Hold all vitamins and supplements for 3 days per anesthesiologist. Medications to discontinue per physician Date to take last dose Please no make-up, nail turkish, hairspray, perfume, deodorant, or body powder the day of surgery. No jewelry (including any body piercings) or valuables the day of surgery, leave them at home. Please take a shower or bath the night before, or the morning of, surgery with an antibacterial soap. Wear comfortable, loose fitting clothing. - Jewelry must be removed prior to entering the operating room. Rings and piercings that are not removed may be cut off. - The hospital will not accept responsibility for valuables. - Please leave all valuables, including medications, at home the day of surgery. If you are going home after surgery, a licensed local flatbed driver must drive you home. - NO public transportation without another adult if you receive anesthesia. - We recommend that an adult stay with you for 24 hours following discharge. - We also recommend that you do not drive, make important decision, drink alcoholic beverages, or take any drugs that were not prescribed by your health care provider for at least 24 hours after your discharge time. Follow any additional instructions given to you from your surgeon. Telephone instructions given to __Rachel__and asked if any additional questions and then verbalized understanding. Patient advised to call surgeon office or pre surgery nurse liaison [phone] if any additional questions.
--- OUTSIDE RECORDS SUMMARY | 2024-07-08 00:13 | XMS_ITS ---
Author Organization [facility] [place] ([address]) Address [address] [place] [address] Care Team Providers Care [address] Mechanical Engineer Name Role Phone Sourav Duran M.D. Primary Care Provider Arelis [place] Unavailable [phone] Maris Hardin Unavailable [phone] REASON FOR VISIT Written Prescription Request Encounters Encounter Location Date Provider Diagnosis [address] [address] 06/20/2024 Maris Hardin Plan Of Treatment No Information Progress Notes * Melly FAJARDO MDOB:1975 (49 yo F)Acc No.[id number]:06/20/2024 Patient: Melly PLUNKETT :1975 A ge:49 Y S ex:Female Address:[address], [place] [facility] [address] * true * Date: Generated for Printi ng/Faxing/eTransmitting on: 0 07/08/2024 12:13 AM CDT
--- OUTSIDE RECORDS SUMMARY | 2024-07-08 00:13 | XMS_ITS ---
Author Organization [facility] [place] ([address]) Address [address] [place] [address] Care Team Providers Care Java Analyst Name Role Phone Sourav Duran M.D. Primary Care Provider Arelis [place] Unavailable [phone] Maris Hardin Unavailable [phone] REASON FOR VISIT RE:Migraines Encounters Encounter Location Date Provider Diagnosis [address] [address] 03/21/2024 Maris Hardin Plan Of Treatment No Information Progress Notes * Melly FAJARDO MDOB:1975 (49 yo F)Acc No.[id number]:03/21/2024 Patient: Melly PLUNKETT :1975 A ge:48 Y S ex:Female Address:[address], [place] [facility] [address] * * Date:
--- OUTSIDE RECORDS SUMMARY | 2024-07-08 00:14 | XMS_ITS ---
Author Organization [facility] [place] ([address]) Address [address] [place] [address] Care Team Providers Care Senior Speech Pathologist Name Role Phone Sourav Duran M.D. Primary Care Provider Arelis vailable [place] Unavailable [phone] REASON FOR VISIT RE:Migraines Encounters Encounter Location Date Provider Diagnosis [address] [address] 03/21/2024 [place] Plan Of Treatment No Information Progress Notes * Melly FAJARDO MDOB:1975 (48 yo F)Acc No.[id number]:03/21/2024 Patient: Melly PLUNKETT :1975 A ge:48 Y S ex:Female Address:[address], [place], [address] * true * Date: Generated for Printi ng/Faxing/eTransmitting on: 0 07/08/2024 12:13 AM CDT
--- OUTSIDE RECORDS SUMMARY | 2024-07-08 00:14 | XMS_ITS | Patient Health Record ---
Author Organization [facility] ([address]) Address [address] [address] Care Team Providers Care Basket Mender Name Role Phone Sourav Duran M.D. Primary Care Provider Arelis Sunshine Levy Unavailable [phone] Dr. Sourav Rosen Unavailable [phone] [facility], Provider Unavailable Unavailab Maris Anaya Unavailable [phone] Allergies No Known Allergies Reason For Referral No Information Medications Medication SIG (Take, Route, Frequency, Duration) Notes Start Date End Date Status ZyrTEC Allergy 10 MG 1 tab(s) orally once a day 06/26/2021 Active ALBUTEROL (EQV-PROVENTIL HFA) 90 MCG/INH INHALE 2 PUFFS BY MOUTH EVERY 6 HOURS for 75 *Please review for potential replacement for e-prescription and drug interaction check* Active Breo Ellipta 200 MCG-25 MCG/INH INHALE 1 PUFF BY MOUTH EVERY DAY INHALED ONCE A DAY for 30 DAYS Patient needs to make an appointment. *Please review and pick correct strength-formulatio n from Medispan options. If intended option is not shown, discontinue and re-order from Quick Search* Active MONTELUKAST SODIUM 10 mg 1 tab(s) orally once a day for 30 day(s) Active Symbicort 160-4.5 MCG/ACT 2 puff(s) inhaled 2 times a day for 30 days 03/05/2023 Active Montelukast Sodium 10 MG 1 tab(s) orally once a day for 30 day(s) Active Fluticasone Propionate 50 MCG/ACT as directed in each nostril once a day for 30 day(s) Active buPROPion HCl ER (XL) 300 MG 1 tab(s) orally every 24 hours for 30 day(s) 06/26/2021 Active Levothyroxine Sodium 137 MCG 1 tab(s) orally once a day for 30 day(s) 06/26/2021 Active Simvastatin 10 MG 1 tab(s) orally once a day (at bedtime) for 30 day(s) 06/26/2021 Active Trintellix 10 MG 1 tab(s) orally once a day for 30 day(s) 06/26/2021 Active Rizatriptan Benzoate 10 MG 1 tab(s) orally once a day 06/26/2021 Active SYMBICORT 160 mcg-4.5 mcg/inh 2 puff(s) inhaled 2 times a day for 30 days 03/05/2023 Active QULIPTA 60 mg 1 tab(s) orally once a day for 30 days 04/23/2023 Active ALBUTEROL (EQV-PROVENTIL HFA) 90 MCG/INH 2 PUFF(S) INHALED EVERY 6 HOURS for 30 DAYS *Please review for potential replacement for e-prescription and drug interaction check* Active Medrol 4 MG 6 tabs Day 1, 5 tabs Day 2, 4 tabs Day 3, 3 tabs Day 4, 2 tabs Day 5, 1 tab Day 6, then stop, Orally take full daily dose in AM with food as directed for 6 days 02/08/2024 Active FLUTICASONE PROPIONATE 50 mcg/inh as directed in each nostril once a day for 30 day(s) Active Qulipta 60 MG 1 tab(s) orally once a day for 30 days 04/23/2023 Active BUPROPION 300 mg/24 hours 1 tab(s) orally every 24 hours for 30 day(s) 06/26/2021 Active LEVOTHYROXINE 137 mcg (0.137 mg) 1 tab(s) orally once a day for 30 day(s) 06/26/2021 Active SIMVASTATIN 10 mg 1 tab(s) orally once a day (at bedtime) for 30 day(s) 06/26/2021 Active TRINTELLIX 10 mg 1 tab(s) orally once a day for 30 day(s) 06/26/2021 Active RIZATRIPTAN 10 mg 1 tab(s) orally once a day 06/26/2021 Active ZYRTEC 10 mg 1 tab(s) orally once a day 06/26/2021 Active BREO ELLIPTA 200 mcg-25 mcg/inh INHALE 1 PUFF BY MOUTH EVERY DAY inhaled once a day for 30 days Patient needs to make an appointment. Active Social History Tobacco Use: Social History Observation Description Date Details (start date - stop date) Never Smoker NA - NA Smoking Smart Form: Question Answer Notes Are you a: never smoker Additional Findings:Tobacco Non-User Aggressive non-smoker Problems Problem Type SNOMED Code ICD Code Onset Dates Problem Status W/U Status Risk Notes Problem Hypothyroidism (37613090) Hypothyroidism, unspecified (E03.9) Active confirmed Problem Hyperlipidemia (05198678) Hyperlipidemia, unspecified (E78.5) Active confirmed Problem Chronic migraine without aura, non-refractory (disorder) (655021721351905) Migraine without aura, not intractable, without status migrainosus (G43.009) Active confirmed Problem Migraine with aura (7400264) Migraine with aura, not intractable, without status migrainosus (G43.109) Active confirmed Problem Chronic migraine without aura, non-intractable (346019921923390) Chronic migraine without aura, not intractable, without status migrainosus (G43.709) Active confirmed Problem Migraine without aura, not refractory (disorder) (608915981) Migraine, unspecified, not intractable, without status migrainosus (G43.909) Active confirmed Problem Obstructive sleep apnea syndrome (disorder) (33006918) Obstructive sleep apnea (adult) (pediatric) (G47.33) Active confirmed Problem Sleep related bruxism (861889684) Sleep related bruxism (G47.63) Active confirmed Problem Chronic allergic conjunctivitis (89574396) Other chronic allergic conjunctivitis (H10.45) Active confirmed Problem Allergic rhinitis caused by pollen (disorder) (74371368) Allergic rhinitis due to pollen (J30.1) Active confirmed Problem Allergic rhinitis (72305017) Other allergic rhinitis (J30.89) Active confirmed Problem Uncomplicated moderate persistent asthma (483017693) Moderate persistent asthma, uncomplicated (J45.40) Active confirmed Problem Allergic contact dermatitis caused by chemical (1609471746537578 3) Allergic contact dermatitis due to other chemical products (L23.5) Active confirmed Problem Allergic rhinitis caused by animal hair and dander (630143173892588) Allergic rhinitis due to animal (cat) (dog) hair and dander (J30.81) Active confirmed Encounters Encounter Location Date Provider Diagnosis [facility] - [place] [address] [facility] [place] [address] 08/08/2023 Provider [facility] - [place] [address] [facility] [place] [address] 12/01/2023 Maris Hardin Chronic migraine without aura, not intractable, without status migrainosus G43.709 [facility] - [place] [address] [facility] [place] [address] 10/28/2023 Sourav Rosen [facility] - [place] [address] [facility] [place] [address] 11/26/2023 Sourav Rosen [facility] - [place] [address] [facility] [place] [address] 03/07/2024 Maris Hardin [facility] - [place] [address] [facility] [place] [address] 06/20/2024 Maris Hardin [facility] - [place] [address] [facility] [place] [address] 03/21/2024 Maris Hardin [facility] - [place] [address] [facility] [place] [address] 10/22/2023 Sourav Rosen [facility] - [place] [address] [facility] [place] [address] 10/23/2023 [place] [facility] - [place] [address] [facility] [place] [address] 11/16/2023 [place] [facility] - [place] [address] [place] [address] 11/16/2023 [place] [facility] - [place] [address] [facility] [place] [address] 11/18/2023 [place] [facility] - [place] [address] [facility] [place] [address] 02/08/2024 Maris Hardin [facility] [address] [place] [address] 03/21/2024 Maris Hardin [facility] [address] [place] [address] 03/21/2024 [place] Assessments Encounter Date Diagnosis (ICD Code) Assessment Notes Treatment Notes Treatment Clinical Notes Section Notes 12/01/2023 Chronic migraine without aura, not intractable, without status migrainosus (ICD-10 - G43.709) Plan Of Treatment No Information Insurance Providers Payer Name Payer Address Payer Phone Subscriber Number Group Number Insured Name Patient Relationship to Insured Coverage Start Date Coverage End Date [facility] [address] [place] [phone] [id number] Melly Fajardo Self - patient is the insured [employer] [place] [employer] [address] [place] [phone] [id number] [facility] Melly Fajardo Self - patient is the insured Medical (General) History Medical History History ICD Code Hypothyroidism, unspecified E03.9 Migraine, unspecified, not intractable, without status migrainosus G43.909 Hyperlipidemia, unspecified E78.5 Depression, unspecified F32.A Allergic rhinitis Asthma Surgical History Surgery Date(Month/Year) cholecystectomy laminectomy kidney stone removal spinal nerve stimulator implant Hospitalization History Reason Date(Month/Year) Asthma exacerbation 2013 Asthma exacerbation 2012
--- OUTSIDE RECORDS SUMMARY | 2024-07-08 00:14 | XMS_ITS | Referral Summary ---
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 [facility]ICE [facility] Gender Identity Female 11/20/2022 11:54 AM CDT [...] on file Medical Devices Implanted Type Area Grey Percher Device Identifier Shelf Expiration Date Model / Serial / Lot Spinal Cord Stimulator Implanted:Unkn own, Notinfile (Quantity not on file) Spinal Cord Stimulator Back Medtronic Neuro [id number] / / Spinal Cord Stimulator Lead Implanted:Unkn own, Notinfile (Quantity not on file) Spinal Cord Stimulator Back Medtronic Neuro [id number] / / Insurance [facility] OPEN ACCESS [facility] OPEN ACCESS Care Teams Senior Ui Ux Developer Relationship Specialty Start Date End Date Sourav Duran MD PCP - General 08/02/21 Angely Duran MD Family Medicine 08/02/21
--- OUTSIDE RECORDS SUMMARY | 2024-07-08 00:14 | XMS_ITS | Clinical Summary ---
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 Gender Identity Female 11/20/2022 11:54 AM CDT [...] season) 2023 11/30/2020, 03/02/2020, 02/10/2020 Influenza Vaccine (Season Ended) 2024 Pneumococcal vaccine <65 Aged Out No longer eligible based on patient's age to complete this topic Medical Devices Implanted Type Area Cutter Barrel Drum Device Identifier Shelf Expiration Date Model / Serial / Lot Spinal Cord Stimulator Implanted:Unkn own, Notinfile (Quantity not on file) Spinal Cord Stimulator Back Medtronic Neuro [id number] / / Spinal Cord Stimulator Lead Implanted:Summer Olivera (Quantity not on file) Spinal Cord Stimulator Back Medtronic Neuro [id number] / / Insurance [facility] OPEN ACCESS [facility] OPEN ACCESS Care Teams Putty And Caulking Supervisor Relationship Specialty Start Date End Date Sourav Duran MD PCP - General 08/02/21 Angely Duran MD Family Medicine 08/02/21
--- NOTE | 2024-07-08 06:48 | P.OP_ITS ---
Procedure Note - Detailed Date of Procedure 07/08/24 Pre-op Diagnosis right cubital and carpal tunnel syndrome Post-op Diagnosis Same Procedure Performed right ectr and cuTR Surgeon Timothy Fisher MD Cloth Printing Utility Worker yamileth antonio pa-c Anesthesia MAC Description of Procedure INFORMED CONSENT: The patient was seen and examined and marked in the pre-op area. The patient signed the consent form. PROCEDURE IN DETAIL:The patient taken back to OR on the stretcher in supine position. Time out performed with anesthesia, surgeon and staff agreeing on patient's name site and surgery to be performed SCDs were placed on the lower extremities and inflated. A tourniquet was placed on {right} upper extremity and antibiotics given IV After anesthesia administered sedation I injected {10}cc 1%lido with epi and 0.5% marcaine plain at the operative sites The {right upper extremity} was prepped and draped in sterile fashion the {right upper extremity} was exsanguinated with Esmarch bandage and tourniquet inflated to 250mmHg I made a transverse incision in the {right} volar distal wrist crease through skin and dermis with 15 blade scalpel. Littler scissors spread down to antebrachial fascia. A small incision was made in antebrachial fascia allowing access to Carpal tunnel. I proceeded with sequential dilation staying in line with the ring finger and hugging the hook of the hamate. I then used the synovial elevator to free any adhesions from the underside of the transverse carpal ligament. Next I was able to insert the Microaire endoscopic carpal tunnel device with direct visualization of the transverse fibers on the monitor and proceeded with complete segmental retrograde release of the ligament in its entirety. I irrigated with normal saline and closed with 4-0 monocryl for dermis and subcuticular closure. I next proceeded with making a longitudinal incision between two heads for flexor carpi ulnaris at end of {right} cubital tunnel with 15 blade scalpel. Littler scissors were used to spread down to FCU fascia. An incision was made in FCU fascia and ulnar nerve identified exiting cubital tunnel. I proceeded with complete retrograde release of the cubital tunnel including 7cm proximal for the intermuscular septum. The nerve appeared healthy with visible vaso nervorum. There was no subluxation on full elbow range of motion. I irrigated with normal saline and closure with 4-0 monocryl for dermis and subcuticular. The incisions were covered with xeroform then 4x4s, prabhjot, and a posterior elbow and volar wrist splint for patient safety, security and comfort and secured with jaylon bandages after the tourniquet was let down noting the hand was warm and well perfused. Patient awaken from anesthesia and transferred to recovery in stable condition Complications - none EBL- 1cc Disposition - home in stable conditions kimberly antonio pa-c was essential for positioning, retraction, closure and dressing placement [facility] [place] Billing Surgery - Charge Forward: Surgery Billing ([id number] same for kimberly adding )
--- NOTE | 2024-07-08 06:50 | P.HP_ITS ---
History of Present Illness History of Present Illness Chief complaint: right cubital and carpal tunnel syndrome Narrative: Patient seen and examined in pre-operative holding area. No interval change in medical history or symptoms. Patient recalls previous discussion of benefits and alternatives to procedure. Continues to desire to proceed with right endoscopic possible open carpal tunnel release and right cubital tunnel release. Reviewed procedure, post-op expectations and risks including but not limited to bleeding, infection, injury to tendon/nerve/vessel, decreased hand function, stiffness, RSD, no change or worsening of symptoms. I discussed the possible use of assistants and their participation in the case. Patient stated understanding and signed the consent form wishing to proceed. Review of Systems Review of Systems: All systems reviewed & are unremarkable except as noted in HPI and below PMFSH Past Medical History Medical History Shirley neuroma BEN (obstructive sleep apnea) Auto PAP Asthma Hypothyroidism (acquired) Mixed hyperlipidemia Surgical History Surgical History H/O tubal ligation Family History Family History Mother Depression Family history of elevated blood lipids Family history of malignant neoplasm of breast in first degree relative Family history of malignant neoplasm of ovary Sibling Depression Family history of elevated blood lipids Father Hypertension Family history of elevated blood lipids Family history of cardiovascular disease Cerebrovascular accident Malignant neoplasm of prostate Grandparent Hypertension Family history of elevated blood lipids Other Family history of headache disorder Family history of hypothyroidism Family history of migraine headaches Social History Social History Smoking status: Never smoker Alcohol intake: current Alcohol use details: occasionally Lack of Transportation: No Lack of Food: Never True Current Housing: I Have Housing Concerned About Future Housing: No Difficulty Paying Gas/Electric Bills: No Difficulty Paying for Meds: No Currently Unemployed: No Education: Bachelor's Degree Difficulty w/ Childcare or Family Care: No Living arrangements: with family Spiritual care concerns: No Meds Home Medications and Allergies Home Medications Medication Instructions Recorded Confirmed Type albuterol sulfate 90 mcg/actuation 2 puff inhalation Q4H PRN 09/10/20 06/29/24 Rx aerosol inhaler (ProAir HFA) shortness of breath or wheezing #8.5 grams cetirizine 10 mg capsule (Zyrtec) 10 mg PO DAILY 12/11/21 06/29/24 History hydrocodone 5 mg-acetaminophen 325 1 tablet PO Q4H PRN pain #20 tabs 12/13/21 0 06/29/24 Rx mg tablet albuterol sulfate 2.5 mg/3 mL 2.5 mg (3 mL) inhalation Q4H PRN 11/10/22 06/29/24 Rx (0.083 %) solution for nebulization shortness of breath or wheezing #75 mL atogepant 60 mg tablet (Qulipta) 60 mg PO DAILY 06/01/23 06/29/24 History levothyroxine 137 mcg tablet 137 mcg PO DAILY #90 tabs 06/08/23 06/29/24 Rx (Synthroid) montelukast 10 mg tablet 10 mg PO DAILY #90 tabs 02/12/24 06/29/24 Rx (Singulair) qzfstkwyqe-gbwworjfxkfwz-assjtzdc 1 cap PO Q4-6H PRN pain #30 caps 03/21/24 06/29/24 Rx 50 mg-300 mg-40 mg capsule (Fioricet) budesonide-formoterol HFA 160 2 puff inhalation Q12H #30.6 grams 03/24/24 06/29/24 Rx mcg-4.5 mcg/actuation aerosol inhaler (Symbicort) simvastatin 20 mg tablet See Rx Instructions .Route 04/26/24 06/29/24 Rx .COMPLEX #90 tabs vortioxetine 10 mg tablet See Rx Instructions .Route 05/02/24 06/29/24 Rx (Trintellix) .COMPLEX #90 tabs eletriptan 40 mg tablet See Rx Instructions PO .COMPLEX 05/12/24 06/29/24 Rx #201 tabs bupropion HCl 300 mg 24 hr tablet, See Rx Instructions .Route 06/13/24 06/29/24 Rx extended release .COMPLEX #90 tabs rizatriptan 10 mg tablet See Rx Instructions .Route 06/15/24 06/29/24 Rx .COMPLEX #27 tabs estradiol-norethindrone acet 0.5 1 tablet PO DAILY 06/29/24 06/29/24 History mg-0.1 mg tablet Allergies Allergy/AdvReac Type Severity Reaction Status Date / Time adhesive Allergy Severe Blister Verified 06/29/24 15:48 benzoin Allergy Intermediate Rash and Verified 06/29/24 15:46 blisters Exam Narrative: unchanged Assessment and Plan Assessment and plan (1) Carpal tunnel syndrome of right wrist: Code(s): G56.01 - Carpal tunnel syndrome, right upper limb Status: Acute Assessment and Plan: cont as above (2) Ulnar neuropathy at elbow of right upper extremity: Code(s): G56.21 - Lesion of ulnar nerve, right upper limb Status: Acute
[2024-07-08 09:30] VITALS: BP 135/90; PULSE 86; RESP 16; TEMP 36.6; O2SAT 100
[2024-07-08] MEDS: LACTATED RINGERS 1,000 ML 30 ML IV CONT (10:00)
--- NOTE | 2024-07-08 10:17 | P.PNAN_ITS ---
Anes - Initial Pre Proc Eval Procedure: Operation Date: 07/08/24 11:15 Proposed Procedures p Right Endoscopic Carpal Tunnel Release, Possible Open, Right Cubital Tunnel Release - Timothy Fisher MD Date/Time: 07/08/24 10:17 Surgeon: Timothy Fisher MD Pre Op Diagnosis: right cubital and carpal tunnel syndrome Patient Data Age: 49 Gender: F Height: 1.68 m Weight: 97.7 kg Allergies Allergy/AdvReac Type Severity Reaction Status Date / Time adhesive Allergy Severe Blister Verified 06/29/24 15:48 benzoin Allergy Intermediate Rash and Verified 06/29/24 15:46 blisters Home Medications Medication Instructions Recorded Confirmed Type albuterol sulfate 90 mcg/actuation 2 puff inhalation Q4H PRN 09/10/20 06/29/24 Rx aerosol inhaler (ProAir HFA) shortness of breath or wheezing #8.5 grams cetirizine 10 mg capsule (Zyrtec) 10 mg PO DAILY 12/11/21 06/29/24 History hydrocodone 5 mg-acetaminophen 325 1 tablet PO Q4H PRN pain #20 tabs 12/13/21 06/29/24 Rx mg tablet albuterol sulfate 2.5 mg/3 mL 2.5 mg (3 mL) inhalation Q4H PRN 11/10/22 06/29/24 Rx (0.083 %) solution for nebulization shortness of breath or wheezing #75 mL atogepant 60 mg tablet (Qulipta) 60 mg PO DAILY 06/01/23 06/29/24 History levothyroxine 137 mcg tablet 137 mcg PO DAILY #90 tabs 06/08/23 06/29/24 Rx (Synthroid) montelukast 10 mg tablet 10 mg PO DAILY #90 tabs 02/12/24 06/29/24 Rx (Singulair) yvryptqilz-amxfqraumjini-ktmchxir 1 cap PO Q4-6H PRN pain #30 caps 03/21/24 06/29/24 Rx 50 mg-300 mg-40 mg capsule (Fioricet) budesonide-formoterol HFA 160 2 puff inhalation Q12H #30.6 grams 03/24/24 06/29/24 Rx mcg-4.5 mcg/actuation aerosol inhaler (Symbicort) simvastatin 20 mg tablet See Rx Instructions .Route 04/26/24 06/29/24 Rx .COMPLEX #90 tabs vortioxetine 10 mg tablet See Rx Instructions .Route 05/02/24 06/29/24 Rx (Trintellix) .COMPLEX #90 tabs eletriptan 40 mg tablet See Rx Instructions PO .COMPLEX 05/12/24 06/29/24 Rx #201 tabs bupropion HCl 300 mg 24 hr tablet, See Rx Instructions .Route 06/13/24 06/29/24 Rx extended release .COMPLEX #90 tabs rizatriptan 10 mg tablet See Rx Instructions .Route 06/15/24 06/29/24 Rx .COMPLEX #27 tabs estradiol-norethindrone acet 0.5 1 tablet PO DAILY 06/29/24 06/29/24 History mg-0.1 mg tablet Patient hx anesthesia problems: none Family hx anesthesia problems: none Results Review: All pre-operative results and documents have been reviewed as part of the pre- operative evaluation. [facility] Past Medical History Medical History Shirley neuroma BEN (obstructive sleep apnea) Auto PAP Asthma Hypothyroidism (acquired) Mixed hyperlipidemia Surgical History Surgical History H/O tubal ligation Family History Family History Mother Depression Family history of elevated blood lipids Family history of malignant neoplasm of breast in first degree relative Family history of malignant neoplasm of ovary Sibling Depression Family history of elevated blood lipids Father Hypertension Family history of elevated blood lipids Family history of cardiovascular disease Cerebrovascular accident Malignant neoplasm of prostate Grandparent Hypertension Family history of elevated blood lipids Other Family history of headache disorder Family history of hypothyroidism Family history of migraine headaches Social History Social History Smoking status: Never smoker Alcohol intake: current Alcohol use details: occasionally Lack of Transportation: No Lack of Food: Never True Current Housing: I Have Housing Concerned About Future Housing: No Difficulty Paying Gas/Electric Bills: No Difficulty Paying for Meds: No Currently Unemployed: No Education: Bachelor's Degree Difficulty w/ Childcare or Family Care: No Living arrangements: with family Spiritual care concerns: No Anes - Eval Final PreProcedure Day of Procedure 07/08/24 10:17 Patient weight: overweight Heart: regular rate and rhythm Lungs: clear to auscultation Airway: Mallampati scale class II Neurological: alert and oriented Last oral intake: >/= 8 hours ASA classification: III Emergent: no Anesthetic plan: proceed Anesthesia type and monitoring: general GIVS and standard monitoring Results Review: All pre-operative results and documents have been reviewed as part of the pre- operative evaluation. Informed Consent: The patient's anesthetic plan and its attendant risks and benefits were discussed with the patient/family/POA. Questions were solicited and answers provided to the satisfaction of the patient/family/POA.
[2024-07-08] MEDS: ceFAZolin 2 GM/D5W 50 ML 2 GM/50 ML BAG IVPB (11:10)
[2024-07-08 11:15] VITALS: BMI 35.2
[2024-07-08] MEDS: LIDO 1%/EPINEPHRINE 1:100,000 20 ML VIAL 10 ML INFILTRATE (11:22)
[2024-07-08] MEDS: BUPivacaine HCL 0.5% 10 ML AMP INFILTRATE (11:22)
[2024-07-08 11:41] VITALS: BP 105/67; PULSE 98; RESP 17; O2SAT 93
[2024-07-08 12:11] VITALS: BP 112/66; PULSE 76
== END 2024-07-08 12:44 | disposition home or self-care (01) ==
PROVIDERS: PCP Family Medicine; Visit Provider Plastic Surgery
PROC: 01N54ZZ Release Median Nerve, Percutaneous Endoscopic Approach (ICD-10-PCS; CPT 29848; principal; 2024-07-08 11:15)
DX: G56.01 Carpal tunnel syndrome, right upper limb (principal); G56.21 Lesion of ulnar nerve, right upper limb
CPT/HCPCS: 29848; 64718; J0690; J2003; J2004; J2250; J2704; J3010; J7120